=== PATIENT | male | born 1930 | race Caucasian/White ===

== ENCOUNTER → 2016-07-22 | Outpatient (CLI) | payer MEDICARE, OTHER ==
[~2016-07-22] MED LIST: ATOR20TA15 PO; LISI10TA3 PO; MULT-65 PO; ORPH100T PO; PROS5TAB PO; RABE1TAB PO; RAPA8CAP PO; ROPI2TAB PO; ROTI1DIS T-DERMAL; TOLT1CAP PO; TOPR25TA PO; [UNRECOGNIZED DRUG - OTHER]
[2016-07-22 13:29] LABS: BICARBONATE 25.5 MEQ/L (21.0-32.0); POTASSIUM 3.6 MEQ/L (3.5-5.1)
== END ==
LOC: PLAB 11:25
PROVIDERS: ATTEND Internal Medicine Interventional Cardiology
DX: I11.9 Hypertensive heart disease without heart failure (principal); R00.1 Bradycardia, unspecified; R01.1 Cardiac murmur, unspecified
CPT/HCPCS: 36415; 80048